=== PATIENT | male | born 1955 | race Caucasian/White ===

== ENCOUNTER 2016-08-24 15:34 | Emergency (ER) | payer OTHER ==
[2016-08-24 15:46] VITALS: BP 130/71; PULSE 54; RESP 17; TEMP 98.7; O2SAT 97
--- NOTE | 2016-08-24 16:15 | EDPHY ---
H & P Stated Complaint: Right knee pain. Twisted while skiing Time Seen by Provider: 08/24/16 16:14 HPI/ROS: CHIEF COMPLAINT: Right knee injury, instability HISTORY OF PRESENT ILLNESS: The patient presents to the ED after he fell while skiing. The patient reportedly injured his right knee. He has very minimal complaints of pain however is experiencing fairly significant instability involving the knee itself. The patient denies any numbness weakness, ankle pain , hip pain, back pain or additional traumatic complaints. The patient denies prior surgical history. The patient is not anticoagulated. REVIEW OF SYSTEMS: A comprehensive 10 point review of systems is otherwise negative aside from elements mentioned in the history of present illness. Source: Patient Exam Limitations: No limitations - Personal History Current Tetanus/Diphtheria Vaccine: Yes Current Tetanus Diphtheria and Acellular Pertussis (TDAP): Yes - Medical/Surgical History Hx Asthma: No Hx Chronic Respiratory Disease: No Hx Diabetes: No Hx Cardiac Disease: No Hx Renal Disease: No Hx Cirrhosis: No Hx Alcoholism: No Hx HIV/AIDS: No Hx Splenectomy or Spleen Trauma: No Other PMH: PMHx: denies. PSHx: denies - Social History Smoking Status: Never smoked - Physical Exam Exam: General Appearance: Alert, no distress Respiratory: No chest wall tenderness Cardiovascular: Regular rate and rhythm Gastrointestinal: Abdomen is soft and nontender, no masses, bowel sounds normal Neurological: Sensation intact to light touch throughout the right lower extremity, 5/5 strength noted all extremities Skin: Warm and dry, no rashes Musculoskeletal: Neck is supple nontender Extremities: Tenderness to palpation of the, joint effusion right knee, instability noted with anterior drawer Constitutional: Initial Vital Signs Temperature (C) 37.1 C 08/24/16 15:42 Heart Rate 54 L 08/24/16 15:42 Respiratory Rate 17 08/24/16 15:42 Blood Pressure 130/71 H 08/24/16 15:42 O2 Sat (%) 97 08/24/16 15:42 Allergies/Adverse Reactions: No Known Allergies Allergy (Unverified 07/01/12 19:23) Home Medications: Medication Instructions Recorded Acetaminophen [Tylenol 325mg (*)] 650 mg PO ONCE 07/01/12 Ascorbic Acid [Vitamin C 500 mg 1,000 mg PO BID 07/01/12 (*)] Calcium Citrate [Citracal] 600 mg PO DAILY 07/01/12 Cholecalciferol Vit D3 [Vitamin D3 5,000 units PO DAILY 07/01/12 (*)] Herbals/Supplements -Info Only 1 each PO AD 07/01/12 Magnesium Oxide [Magnesium Oxide 500 mg PO DAILY 07/01/12 500 mg] Multivitamins [Multivitamin (*)] 1 each PO DAILY 07/01/12 Pharmacy Completed 07/01/12 07/01/12 Ubidecarenone [Coenzyme Q10] 100 mg PO DAILY 07/01/12 Vitamin E [Vitamin E 400 units] 400 unit PO DAILY 07/01/12 oxyCODONE/APAP 5/325 [Percocet 1 - 2 tab PO Q3 PRN #0 tab 07/02/12 5/325 (*)] Medical Decision Making - Diagnostics Imaging: Right knee x-ray: Negative for acute fracture by my interpretation. Formal interpretation pending. ED Course/Re-evaluation: The patient presents to the ED with a likely ligamentous injury to his right knee. The patient has been placed in a knee immobilizer and given crutches. The patient has been informed that there is no obvious fracture on the x-ray today but given his complaints of instability it is certainly possible/likely he is injured his ACL and or PCL. The patient will be referred to our on-call orthopedic surgeon Dr. Bruce Escobar. The patient is noted to be neurovascularly intact with a brisk 2+ dorsalis pedis and posterior tibial pulse. Differential Diagnosis: Differential diagnosis considered includes fracture, sprain, dislocation, neurovascular injury, ligamentous injury Departure - Departure Disposition: Home, Routine, Self-Care Clinical Impression: Right knee sprain Condition: Good Instructions: Knee Sprain (ED) Additional Instructions: 1. Take Ibuprofen or Motrin 600 mg by mouth three times a day. 2. Crutches and knee immobilizer as needed for comfort. 3. Please schedule a follow-up appointment with the orthopedic surgeon you have been referred to. I do believe you likely have a ligamentous injury appear to be which will require additional testing and potentially surgery. Referrals: Bruce Escobar MD [Medical Doctor] - As per Instructions
--- NOTE | 2016-08-24 16:52 | DX ---
Right knee, 5 views History: Trauma, pain. Skiing injury. Findings: No acute fracture or dislocation identified. No definite joint effusion. No tibiofemoral arabella int space narrowing. Exostosis proximal medial tibial metaphysis. Impression: 1. No definite acute fracture. 2. Recommend additional imaging if symptoms persist, if clinically indicated.
== END 2016-08-24 16:56 | disposition home or self-care (01) ==
DX: S83.91XA Sprain of unspecified site of right knee, initial encounter (principal); V00.321A Fall from snow-skis, initial encounter; Y99.8 Other external cause status; Y93.23 Activity, snow (alpine) (downhill) skiing, snowboarding, sledding, tobogganing and snow tubing